=== PATIENT | female | born 1950 | race Caucasian/White ===

== ENCOUNTER → 2016-09-16 | Outpatient (CLI) | payer OTHER ==
[2016-05-29 11:00] VITALS: BP 129/72
[~2016-09-16] MED LIST: CALC1TAB75 PO; CELE200C PO; CHOL5000 PO; FERR-26 PO; GABA-586 PO; LORA-434 PO; OXYC1TAB9 PO; OXYC5CAP3 PO; OXYM20TA10 PO; PREG225C PO; SCOP1PAT TD
== END | disposition home or self-care (01) ==
LOC: SURGPAT 13:12
PROVIDERS: ATTEND Orthopaedic Surgery
DX: M17.12 Unilateral primary osteoarthritis, left knee (principal)
CPT/HCPCS: 87641

== ENCOUNTER → 2016-12-11 | Outpatient (CLI) | payer OTHER ==
[2016-05-29 11:00] VITALS: BP 129/72
[~2016-12-11] MED LIST changes: +OXYC5CAP PO; -OXYC5CAP3 PO; -OXYM20TA10 PO; +OXYM20TA17 PO
--- NOTE | 2016-12-11 13:11 | RAD ---
Left lower extremity bone length study, 12/11/2016: History: Osteoarthritis of the knee, surgical planning AP views of the femur and lower leg were obtained with markers placed on the skin surface laterally as requested to aid in measurements for surgical planning. There is severe osteoarthritis at the left knee joint with dominant involvement of the medial compartment. An internal metallic fixation device is in place transfixing an old healed left hip fracture. There is mild degenerative change at the left hip joint. These limited views are otherwise unremarkable.
--- NOTE | 2016-12-11 13:57 | RAD ---
MRI left knee without contrast dated 12/11/2016 1:00 PM Indication: MATHUR AND NEPHEW PROTACOL pain , arthritis knee pain Comparison: No comparison is available. Technique: After 3 plane localizer, thin cut sagittal proton density imaging acquired along with a standard T2-weighted axial sequence. Study performed as Mathur and nephew protocol. Findings: Moderate to severe tricompartmental hypertrophic changes, most prominent in the medial compartment. There are broad zones of full-thickness cartilage loss over the weightbearing surfaces medial femoral condyle and medial tibial plateau. There is also probable full-thickness cartilage loss of the medial femoral trochlea, trochlear groove and medial patellar facet. Moderate size joint effusion. No significant popliteal cyst. No intra-articular loose body. Anterior cruciate and posterior cruciate ligaments are intact. Medial and lateral collateral complexes are grossly intact. Quadriceps and patellar tendon are intact. Marked blunting and deficiency in size of the medial meniscus throughout. There is also blunted morphology and abnormal signal of the anterior horn lateral meniscus. IMPRESSION: 1. Limited exam, intended for surgical localization purposes only. 2. Moderate tricompartmental degenerative arthrosis and chondromalacia, most severe in the medial compartment. 3. Degenerative tearing of the medial meniscus with early degenerative tear of the anterior horn of lateral meniscus. 4. Small joint effusion. Electronically signed by: Rome Hobson MD (12/11/2016 1:54 PM) [facility]
== END | disposition home or self-care (01) ==
LOC: RAD 15:01
PROVIDERS: ATTEND Orthopaedic Surgery Sports Medicine
DX: S83.242A Other tear of medial meniscus, current injury, left knee, initial encounter (principal); X58.XXXA Exposure to other specified factors, initial encounter; Y93.89 Activity, other specified; Y92.89 Other specified places as the place of occurrence of the external cause; Y99.8 Other external cause status; M25.462 Effusion, left knee
CPT/HCPCS: 73721; 77073

== ENCOUNTER → 2016-12-23 | Outpatient (CLI) | payer OTHER ==
[2016-05-29 11:00] VITALS: BP 129/72
[~2016-12-23] MED LIST changes: +CHOL2000 PO
[2016-12-23 11:45] LABS: BASO # 0.1 x10^3/uL (0.0-0.2); BASO % 1 % (0-3); EOS % 5 % (0-3); HEMATOCRIT 37.5 % (36.0-47.0); HEMOGLOBIN 12.3 g/dL (12.0-15.5); LYMPH # 0.9 x10^3/uL (1.0-4.8); LYMPH % 17 % (24-48); MEAN CORPUSCULAR HEMOGLOBIN 31 pg (25-35); MEAN CORPUSCULAR HGB CONC 33 g/dL (31-37); MEAN CORPUSCULAR VOLUME 95 fL (79-100); MONO % 7 % (0-9); NEUT % 70 % (31-73); PLATELET COUNT 302 x10^3/uL (140-400); RED BLOOD COUNT 3.95 x10^6/uL (3.50-5.40); RED CELL DISTRIBUTION WIDTH 13.7 % (11.5-14.5); WHITE BLOOD COUNT 5.4 x10^3/uL (4.0-11.0)
[2016-12-23 11:51] LABS: ALBUMIN 3.5 g/dL (3.4-5.0); CREATININE 0.7 mg/dL (0.6-1.0); GFR 83.2
[2016-12-23 13:32] LABS: PROTHROMBIN TIME PATIENT 12.1 SEC (11.7-14.0)
[2016-12-23 16:42] LABS: BILIRUBIN,URINE NEGATIVE (NEG); GLUCOSE,URINE NEGATIVE (NEG); NITRITE,URINE NEGATIVE (NEG); PH,URINE 5.5; PROTEIN,URINE NEGATIVE (NEG-TRACE); UROBILINOGEN,URINE 0.2 mg/dL (0.2 mg/dL)
[2016-12-23 17:27] LABS: BACTERIA,URINE 0 /HPF (0-FEW); RBC,URINE 0 /HPF (0-2); SQUAMOUS EPITHELIAL CELL,UR OCC /LPF; WBC,URINE OCC /HPF (0-4)
== END | disposition home or self-care (01) ==
LOC: SURGPAT 11:04
PROVIDERS: ATTEND Orthopaedic Surgery Sports Medicine
DX: M17.12 Unilateral primary osteoarthritis, left knee (principal); R79.89 Other specified abnormal findings of blood chemistry
CPT/HCPCS: 36415; 80048; 81001; 82040; 85025; 85610; 85651; 85730; 87641

== ENCOUNTER → 2018-12-14 | Outpatient (CLI) | payer OTHER ==
[2017-01-09 12:11] VITALS: BP 121/72
[~2018-12-14] MED LIST changes: -FERR-26 PO; +FERR325T14 PO; -GABA-586 PO; +GABA300C18 PO; +OXYC-411 PO; -OXYC1TAB9 PO; -SCOP1PAT TD; +SCOP1PAT11 TD
--- NOTE | 2018-12-15 01:43 | PAIN ---
DATE OF SERVICE: 12/14/2018 PROGRESS NOTE FOR PAIN CLINIC DIAGNOSES: Lumbar degenerative disk disease, lumbar spinal stenosis, and lumbar spondylosis. HISTORY OF PRESENT ILLNESS: The patient is a 68-year-old female, who returns for followup status post previous lumbar epidural steroid injections, last seen 02/2016. The patient reports that she was doing fairly well, but the shots are not helping as much over time and her pain now is limited just to her back, does not have any pain radiating into her lower extremities. It has been worse over the past year or so, increased with extension of the lumbar spine and axial loading of the low back with significant pain, but this is better with forward flexion and worse with walking, standing, even sitting for a longer than 15-20 minutes. The patient has been using heat and ice on her back, which has been helping. The patient describes the pain as aching type, burning and constant, becoming more severe in the back itself bilaterally, right and left but not into the lower extremities. The patient reports it is 10 on a scale of 10, its worst over the past week, 9 on average, 8 at its least, is 9 today. The patient reports no new motor or sensory deficits. It has been awakening her from sleep at night about every 6 hours or so. No new changes or other concerns. PHYSICAL EXAMINATION: VITAL SIGNS: The patient's blood pressure 133/81, pulse is 78, respirations 18, temperature 98.1 degrees Fahrenheit. Height is 5 feet 8 inches. Weight is 152 pounds. GENERAL: The patient is awake, alert, oriented, appropriate, very pleasant demeanor. The patient is accompanied by her . HEENT: Head shows normocephalic, atraumatic. Extraocular movements are intact and symmetrical. Oral cavity, mucous membranes moist and pink. Dentition is intact. NECK: Shows anterior throat supple without palpable lymphadenopathy noted. Swallow reflex symmetrical. CHEST: Shows normal on inspection. Breath sounds are clear to auscultation bilaterally. HEART: Shows S1, S2 clear. No murmurs auscultated. ABDOMEN: Soft, nontender, and nondistended. No palpable organomegaly is noted. No rebound or guarding demonstrated. BACK: Shows spine grossly in midline. Normal appearing thoracic kyphosis and lumbar lordotic curvature slightly flattened. Lumbar paraspinous muscle shows symmetrical on inspection. With palpation some moderate tenderness throughout the upper, middle, and lower distribution of the paraspinous muscles bilaterally, but only diffusely without radiation. The patient shows good rotational motion with some moderate tenderness with both right and left lateral rotation greater than 10 degrees and with extension of the lumbar spine and axial loading of the low back. Severe pain reported both right and left, which is decreased with forward flexion which was performed to 45 degrees without difficulty. EXTREMITIES: The patient's lower extremities show deep tendon reflexes 1+ in the patellar and tendo calcaneus tendon. The patient has new surgical scar over her left knee from total knee replacement. Motor exam is strong with 5/5 dorsiflexion, extension and equal. Peripheral pulses are 1+ posterior tibia. No peripheral edema is noted bilaterally. Options were discussed with the patient. The patient's old chart was reviewed, as her current medication regimen updated. Current review of systems updated today as well. We will preauthorize the patient for bilateral lumbar facet joint injections, L4-L5 and L5-S1 levels. The patient has significant pain with extension and axial loading of the lumbar spine consistent with lumbar and lumbosacral spondylosis. The patient will first have an MRI scan performed, as she has not had one since 2013, with significant increase in pain over the past year. Once this is established, we will have the patient return for bilateral lumbar facet joint injections at that time and the patient was given a Medrol Dosepak in the meantime with instructions, side effects to be aware of as well. We will follow up as scheduled. LIT PELAEZ MD DR: ZAYRA/jimmy JOB#: [id number] / [id number]
== END | disposition home or self-care (01) ==
LOC: PNCL 09:14
PROVIDERS: ATTEND Anesthesiology
DX: M51.36 Other intervertebral disc degeneration, lumbar region (principal); M48.061 Spinal stenosis, lumbar region without neurogenic claudication; M47.816 Spondylosis without myelopathy or radiculopathy, lumbar region; M40.294 Other kyphosis, thoracic region
CPT/HCPCS: G0463

== ENCOUNTER → 2018-12-16 | Outpatient (CLI) | payer OTHER ==
[2017-01-09 12:11] VITALS: BP 121/72
--- NOTE | 2018-12-16 12:27 | [facility] ---
LUMBAR SPINE WO CONTRAST History: Low back pain. History of scoliosis and arthritis. Technique: Multiplanar, multi sequential MR imaging was performed of the lumbar spine. 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 L5-S1 is noted on axial T2 series 6 image #21. Moderate leftward curvature of the lumbar spine, unchanged. Right lateral subluxation of L2 on L3. Minimal grade 1 anterolisthesis L4 on L5. Mild retrolisthesis L2 on L3 and L3 on L4. Multilevel degenerative endplate changes. Minimal degenerative endplate edema L3-L4, decreased compared to prior. Vertebral body hemangioma L1 and L2. Conus terminates at the normal location. No evidence of nerve root clumping. T12-L1: No canal or neuroforaminal narrowing. Mild facet arthropathy. L1-L2: Posterior disc osteophyte complex. Minimal canal narrowing. Moderate facet arthropathy, left greater the right. Moderate left neural foraminal narrowing. No right neuroforaminal narrowing. L2-L3: Mild retrolisthesis. Severe disc height loss. Posterior disc osteophyte complex. Moderate facet arthropathy. No canal narrowing. Mild bilateral neural foraminal narrowing. L3-L4: Mild retrolisthesis. Broad-based posterior disc bulge. Advanced facet arthropathy. Mild right subarticular recess narrowing. No canal narrowing. Moderate to severe right and mild left neural foraminal narrowing. L4-L5: Posterior disc osteophyte complex. Severe disc height loss. Grade 1 anterolisthesis. Advanced facet arthropathy. Mild right subarticular recess narrowing. Mild posterior canal narrowing. Mild to moderate right and mild left neural foraminal narrowing. L5-S1: Disc height loss. Posterior disc bulge. Advanced facet arthropathy. No canal narrowing. Mild to moderate bilateral neural foraminal narrowing. Interval development of heterogeneous signal abnormality within the sacrum at S2 and S3 with minimal edema compared to 2014 Compared to prior examination the degenerative findings are similar. Impression: 1. 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 2. Advanced multilevel lumbar spondylosis with moderate leftward curvature, unchanged. 3. Multilevel canal and subarticular recess narrowing most prominent L3-L4 and L4-L5, unchanged. 4. Multilevel neural foraminal narrowing most prominent right L4-L5, unchanged. 5. Interval development of signal abnormality within the sacrum at S2 and S3 with minimal edema, may relate to interval sacral insufficiency fracture compared to 2014. Recommend correlation for acute pain to evaluate chronicity. Electronically signed by: Reza Oliver DO (12/16/2018 12:24 PM) [facility]
== END | disposition home or self-care (01) ==
LOC: KCIC MRI 11:16
PROVIDERS: ATTEND Anesthesiology
DX: M47.26 Other spondylosis with radiculopathy, lumbar region (principal); M48.061 Spinal stenosis, lumbar region without neurogenic claudication
CPT/HCPCS: 72148

== ENCOUNTER → 2019-01-06 | Outpatient (CLI) | payer OTHER ==
[2017-01-09 12:11] VITALS: BP 121/72
[~2019-01-06] MED LIST changes: +BUPIVACAINE MPF 0.25% 10 ML VIAL. ONE; +IOHEXOL 180 MG/ML 10 ML VIAL. ONE; +methylPREDNISolone ACETATE 40 MG/ML VIAL. ONE; +methylPREDNISolone ACETATE 80 MG/ML VIAL. ONE
--- NOTE | 2019-01-06 22:10 | PAIN ---
DATE OF SERVICE: 01/06/2019 PROGRESS NOTE FOR PAIN CLINIC DIAGNOSES: Lumbar degenerative disk disease, lumbar spinal stenosis, lumbar spondylosis and lumbosacral spondylosis. HISTORY OF PRESENT ILLNESS: The patient is a 76-year-old female who returns for followup status post previous lumbar epidural steroid injections, last seen in 2015. The patient returns with significant low back pain and symptoms consistent with facet syndrome. The patient reports draped waiting for preauthorization from her insurance provider. She has obtained that now and would like to proceed today with bilateral facet injections. The patient reports still pain in the low back, somewhat worse on the left than the right, but present bilaterally, rated a 9 on a scale of 10 at its worst in the past week, 6 on average, 4 at its least and is a 6 today. The patient reports it is aching, burning, constant, severe, in the low back itself, worse with walking, standing, changing positions. The patient reports no new motor or sensory deficit, does not awaken him from sleep at night, much better with sitting or lying down. PHYSICAL EXAMINATION: VITAL SIGNS: The patient's blood pressure 129/75, pulse 50, respirations are 18, temperature 97.7 degrees Fahrenheit, height is 5 feet 8 inches, weight is 155 pounds. GENERAL: The patient is awake, alert, oriented, appropriate, very pleasant demeanor. HEENT: Shows normocephalic, atraumatic. Extraocular movements are intact and symmetrical. Oral cavity: Mucous membranes moist and pink. Dentition is intact. NECK: Shows anterior throat supple without palpable lymphadenopathy noted. Swallow reflex symmetrical. CHEST: Shows normal on inspection. Breath sounds clear to auscultation bilaterally. HEART: Shows S1, S2 clear. No murmurs auscultated. ABDOMEN: Soft, nontender and nondistended. No palpable organomegaly is noted. No rebound or guarding demonstrated. BACK: Shows spine grossly in the midline. Slight exaggeration of thoracic kyphosis and minor flattening of lumbar lordotic curvature. Lumbar paraspinous muscle shows symmetrical on inspection, on palpation shows some moderate tenderness diffusely bilaterally going diffusely without radiation. The patient shows good rotational motion with some moderate tenderness with bilateral rotation greater than 10 degrees right and left as well as extension with significant increase in pain with extension greater than 10 degrees, decreased with forward flexion at 45 degrees. EXTREMITIES: Lower extremities show deep tendon reflexes 1+ in the patellar and tendocalcaneus tendons. Motor exam is strong with 5/5 dorsiflexion, extension, quadriceps and hamstring flexion and symmetrical. Peripheral pulses are 1+ bilaterally. No peripheral edema is noted. Options were discussed with the patient. The patient's old chart was reviewed. Her current medication regimen updated. Current review of systems updated today as well. We will proceed with bilateral L4-L5 and L5-S1 facet joint injections under fluoroscopic guidance. Risks were again discussed including, but not limited to bleeding, infection, possibility of epidural hematoma, subsequent neurological compromise, dural punctures, headaches, spinal cord and/or nerve damage, side effects of steroid medication and poor results regarding pain control. The patient understands and wished to proceed. The patient will return to clinic in approximately 2 weeks for followup. She was counseled on return appointment, activity level and side effects to be aware of. DIAGNOSES: Lumbar degenerative disk disease, lumbar spondylosis and lumbosacral spondylosis. PROCEDURE: Lumbar L4-L5 and L5-S1 facet joint injections bilaterally under sterile prep and drape using local anesthetic. MEDICATION INJECTED: The patient received a total of 120 mg Depo-Medrol plus total of 4 mL of 0.25% bupivacaine and total of 2 mL of contrast. CONDITION AT DISCHARGE: Stable. The patient tolerated procedure well, had no complications. LIT PELAEZ MD DR: ZAYRA/jimmy JOB#: [id number] / [id number]
== END ==
LOC: PNCL 10:56
PROVIDERS: ATTEND Anesthesiology
DX: M47.817 Spondylosis without myelopathy or radiculopathy, lumbosacral region (principal); M51.36 Other intervertebral disc degeneration, lumbar region; M48.061 Spinal stenosis, lumbar region without neurogenic claudication
CPT/HCPCS: 64493; 64494; J1030; J1040; J3490; Q9965; 64490; 64491

== ENCOUNTER → 2019-01-20 | Outpatient (CLI) | payer OTHER ==
[2017-01-09 12:11] VITALS: BP 121/72
[~2019-01-20] MED LIST changes: -BUPIVACAINE MPF 0.25% 10 ML VIAL. ONE; -IOHEXOL 180 MG/ML 10 ML VIAL. ONE; -methylPREDNISolone ACETATE 40 MG/ML VIAL. ONE; -methylPREDNISolone ACETATE 80 MG/ML VIAL. ONE
--- NOTE | 2019-01-21 01:16 | PAIN ---
DATE OF SERVICE: 01/20/2019 DIAGNOSES: Lumbar and lumbosacral spondylosis. HISTORY OF PRESENT ILLNESS: The patient is a 45-year-old female who returns for followup status post bilateral L4-L5 and L5-S1 facet joint injections. The patient reports 90% improvement for the first 4 days after the injection, the pain began to gradually return, still about 50% improvement overall in the low back, but significantly returning as it is getting worse at night. The patient reports it is in the low back itself, not radiating into the lower extremities, but in the low back only to the sides, right and left, as a burning pain, is becoming more constant, aching, sharp and tight, rates it 9 on a scale of 10 at its worst over the past few days, 8 on average, 5 at its least and is an 8 today. The patient reports no loss of motor function, no bowel or bladder incontinence, but significant pain across the low back, worse with standing, worse with extension of the lumbar spine and axial loading of the low back, especially some with forward flexion, but very minimal. Right and left lateral rotation causes increased the pain as well. The patient reports initially the first few days, she was doing very well, but the pain has now returned. PHYSICAL EXAMINATION: VITAL SIGNS: The patient's blood pressure 120/75, pulse 79, respirations are 18, temperature 98.2 degrees Fahrenheit, height is 5 feet 8 inches, weighs 156 pounds. GENERAL: The patient is awake, alert, oriented, appropriate, very pleasant demeanor. The patient is accompanied by her . HEENT: Shows normocephalic, atraumatic. Extraocular movements are intact and symmetrical. Oral cavity: Mucous membranes moist and pink. Dentition is intact. NECK: Shows anterior throat supple without palpable lymphadenopathy noted. Swallow reflex symmetrical. CHEST: Shows normal with inspection. On auscultation, shows breath sounds clear to auscultation bilaterally. HEART: Shows S1, S2 clear. ABDOMEN: Soft, nontender, nondistended. No palpable organomegaly is noted. BACK: Shows spine grossly in the midline, slight exaggerated thoracic kyphosis and minor flattening of lumbar lordotic curvature. Lumbar paraspinous muscle shows symmetrical on inspection, with palpation shows some moderate tenderness throughout the upper, middle and lower distribution of paraspinous muscles bilaterally, but only diffusely without significant radiation. The patient has good rotational motion, but with moderate tenderness with right and left lateral rotation greater than 10 degrees and significant tenderness with extension greater than 10 degrees and axial loading of the low back and lumbar spine. Forward flexion decreases the pain to a moderate extent and is performed fully at 45 degrees. EXTREMITIES: Lower extremities show deep tendon reflexes 1+ in the patellar and tendo calcaneus tendons. Motor exam is strong with 5/5 dorsiflexion, extension, quadriceps and hamstring flexion. Peripheral pulses 1+ posterior tibia. No peripheral edema is noted bilaterally. Options were discussed with the patient. The patient's old chart was reviewed. Current medication regimen is updated. Current review of systems updated today as well. We will preauthorize the patient for a second lumbar facet joint injections, L4-L5 and L5-S1 level. She did very well with the first injection, also discussed potential radiofrequency ablation if we can repeat good results as she had at the first time with the diagnostic blocks. The patient will return to clinic in approximately 2 weeks. We will plan on bilateral L4-L5 and L5-S1 facet joint injections at that time. LIT PELAEZ MD DR: ZAYRA/jimmy JOB#: [id number] / [id number]
== END | disposition home or self-care (01) ==
LOC: PNCL 10:26
PROVIDERS: ATTEND Anesthesiology
DX: M47.817 Spondylosis without myelopathy or radiculopathy, lumbosacral region (principal)
CPT/HCPCS: G0463

== ENCOUNTER → 2019-02-04 | Outpatient (CLI) | payer OTHER ==
[2017-01-09 12:11] VITALS: BP 121/72
[~2019-02-04] MED LIST changes: +BUPIVACAINE MPF 0.25% 10 ML VIAL. ONE; +IOHEXOL 180 MG/ML 10 ML VIAL. ONE; +LIDOCAINE 1% PF 2 ML VIAL. ONE; +methylPREDNISolone ACETATE 40 MG/ML VIAL. ONE; +methylPREDNISolone ACETATE 80 MG/ML VIAL. ONE
--- NOTE | 2019-02-05 02:55 | PAIN ---
DATE OF SERVICE: 02/04/2019 PROGRESS NOTE FOR PAIN CLINIC DIAGNOSES: Lumbar spondylosis with lumbosacral spondylosis, lumbar degenerative disk disease and lumbar spinal stenosis. HISTORY OF PRESENT ILLNESS: The patient is a 68-year-old female who returns for followup status post bilateral lumbar facet joint injections, L4-L5 and L5-S1. The patient had done very well initially about 90% improvement for about 4 days after the first injection. The patient returns now for repeat injection after preauthorization and would like to proceed. The patient reports still significant pain in the low back itself bilaterally, worse with extension and axial loading of the lumbar spine as well as rotational motion of right and left lateral with lumbar spine. The patient reports it is worse as a 9 on a scale of 10 in the past week, 5 on average, 2 at its least and is a 5 today. The patient reports it is aching, sharp, burning, stabbing, constant, again worse with walking, standing, changing positions, better with sitting or lying down, does not awaken her from sleep at night. The patient reports no new motor or sensory deficits, no new bowel or bladder incontinence. PHYSICAL EXAMINATION: VITAL SIGNS: The patient's blood pressure 130/93, pulse is 120, respirations are 18, temperature 98.2 degrees Fahrenheit, height is 5 feet 8 inches and weight is 157 pounds. GENERAL: The patient is awake, alert, oriented, appropriate, very pleasant demeanor. HEENT: Shows normocephalic, atraumatic. Extraocular movements are intact and symmetrical. Oral cavity: Mucous membranes moist and pink. Dentition is intact. NECK: Shows anterior throat is supple without palpable lymphadenopathy noted. Swallow reflex symmetrical. CHEST: Shows normal on inspection. Breath sounds are clear to auscultation bilaterally. HEART: Shows S1, S2 clear. No murmurs auscultated. ABDOMEN: Soft, nontender, nondistended. No palpable organomegaly is noted. No rebound or guarding demonstrated. BACK: Shows spine grossly in the midline. Normal appearing thoracic kyphosis, some minor flattening of lumbar lordotic curvature. Lumbar paraspinous muscle shows symmetrical on inspection, on palpation shows some moderate tenderness diffusely bilaterally, but only diffusely without radiation. The patient has good rotational motion of lumbar spine, both laterally as well as extension and flexion, but with extension shows significant pain in the low back bilaterally, slightly more on the right than the left. This is true with rotation with some moderate tenderness right and left at 10 degrees, forward flexion nontender, at 45 degrees. EXTREMITIES: The patient's lower extremities show deep tendon reflexes 1+ in the patellar and tendo calcaneus tendons. Motor exam is strong with 5/5 dorsiflexion, extension, quadriceps and hamstring flexion and symmetrical. Peripheral pulses are 1+ posterior tibia. No peripheral edema is noted bilaterally. Options were discussed with the patient. The patient's old chart was reviewed as her current medication regimen updated. Current review of systems updated today as well. We will proceed with bilateral L4-L5 and L5-S1 facet joint injections today with fluoroscopic guidance. Risks were again discussed including, but not limited to bleeding, infection, possibility of epidural hematoma, subsequent neurological compromise, dural puncture, headaches, spinal cord and/or nerve damage, side effects of steroid medication and poor results regarding pain control. The patient understands and wished to proceed. The patient will return to clinic in approximately 2 weeks for followup. She was counseled as to return appointment, activity level and side effects to be aware of. DIAGNOSES: Lumbar and lumbosacral spondylosis. PROCEDURE: Bilateral L4-L5 and L5-S1 facet joint injections using C-arm fluoroscopic guidance under sterile prep and drape using local anesthetic. MEDICATION INJECTED: A total of 120 mg Depo-Medrol plus 4 mL of 0.25% bupivacaine and 2 mL total of contrast. CONDITION AT DISCHARGE: Stable. The patient tolerated the procedure well, had no complications. LIT PELAEZ MD DR: ZAYRA/jimmy JOB#: [id number] / [id number]
== END ==
LOC: PNCL 11:36
PROVIDERS: ATTEND Anesthesiology
DX: M47.817 Spondylosis without myelopathy or radiculopathy, lumbosacral region (principal); M51.36 Other intervertebral disc degeneration, lumbar region; M48.061 Spinal stenosis, lumbar region without neurogenic claudication
CPT/HCPCS: 64493; 64494; J1030; J1040; J3490; Q9965